=== PATIENT | male | born 1995 | race Caucasian/White ===

== ENCOUNTER 2016-09-29 17:15 | Emergency (ER) | payer OTHER ==
[2016-09-29 17:19] VITALS: BP 146/93
--- NOTE | 2016-09-29 17:21 | ER Document Report ---
ED Medical Screen (RME) - General Stated Complaint: BACK AND SIDE MUSCLE SPASMS Mode of Arrival: Ambulatory Information source: Patient Notes: c/o entire back pain and right side ribs and right anterior chest pain that started 2 days ago with associated muscle spasms. Hx of laryngitis 2 weeks ago with prolonged cough. +cough, +fever (Tmax 104 orally), +chills, -wheezing, -nausea, +post-tussive vomiting He has tried advil and icy hot which has not provided relief. He has completed an abx for laryngitis. I have greeted and performed a rapid initial assessment of this patient. A comprehensive ED assessment and evaluation of the patient, analysis of test results and completion of the medical decision making process will be conducted by additional ED providers. Physical Exam - Notes Notes: Lungs CTAB
[2016-09-29] MEDS ORDERED: HYDROCODONE/ACETAMINOPHEN 5-325 MG 6 TAB/DSPK PO PRN (19:11)
[2016-09-29] MEDS ORDERED: BENZONATATE 100 MG CAPSULE PO ONE (19:11)
--- NOTE | 2016-09-29 19:12 | ER Document Report ---
ED General - General Chief Complaint: Cold Symptoms Stated Complaint: BACK AND SIDE MUSCLE SPASMS Mode of Arrival: Ambulatory Notes: Patient is a 21-year-old male without past medical history who presents with 2 days of diffuse back, thoracic wall and shoulder pain. States that this started after several days of vigorous coughing to the point where he had posttussive emesis. Describes the pain as a dull, constant, aching pain. He states that he has been taking ibuprofen with minimal improvement of the pain. Nothing other than moving or coughing worsens the pain. States he had a fever several days ago but has not had any in the last 2-3 days. States the coughing is overall improving at this time. He denies any shortness of breath. No syncope. He has not seen his primary care doctor regarding today's concerns. He denies any history of similar symptoms in the past. TRAVEL OUTSIDE OF THE [place] IN LAST 30 DAYS: No - Related Data Allergies/Adverse Reactions: No Known Allergies Allergy (Unverified 09/29/16 17:20) Past Medical History - General Information source: Patient - Social History Smoking Status: Former Smoker Chew tobacco use (# tins/day): No Frequency of alcohol use: None Drug Abuse: None Lives with: Spouse/Significant other Family History: Reviewed & Not Pertinent Patient has suicidal ideation: No Patient has homicidal ideation: No Pulmonary Medical History: Reports: Hx Asthma - as a child Renal/ Medical History: Denies: Hx Peritoneal Dialysis Past Surgical History: Reports: Hx Tonsillectomy - Immunizations Hx Diphtheria, Pertussis, Tetanus Vaccination: Yes Review of Systems - Review of Systems Notes: Constitutional: Negative for fever. HENT: Negative for sore throat. Eyes: Negative for visual changes. Cardiovascular: Negative for chest pain. Respiratory: Negative for shortness of breath. Gastrointestinal: Negative for abdominal pain, vomiting or diarrhea. Genitourinary: Negative for dysuria. Musculoskeletal: Positive for diffuse chest wall and back musculoskeletal pain Skin: Negative for rash. Neurological: Negative for headaches, weakness or numbness. 10 point ROS negative except as marked above and in HPI. Physical Exam - Vital signs Vitals: Temp Pulse Resp BP Pulse Ox 97.8 F 106 H 18 146/93 H 96 09/29/16 17:18 09/29/16 17:18 09/29/16 17:18 09/29/16 17:18 09/29/16 17:18 Interpretation: Tachycardic Notes: PHYSICAL EXAMINATION: GENERAL: Well-appearing, well-nourished and in no acute distress. HEAD: Atraumatic, normocephalic. EYES: Pupils equal round and reactive to light, extraocular movements intact, sclera anicteric, conjunctiva are normal. ENT: nares patent, oropharynx clear without exudates. Moist mucous membranes. NECK: Normal range of motion, supple without lymphadenopathy LUNGS: Breath sounds clear to auscultation bilaterally and equal. No wheezes rales or rhonchi. HEART: Regular rate and rhythm without murmurs ABDOMEN: Soft, nontender, normoactive bowel sounds. No guarding, no rebound. No masses appreciated. EXTREMITIES: Normal range of motion, no pitting or edema. No cyanosis. NEUROLOGICAL: No focal neurological deficits. Moves all extremities spontaneously and on command. PSYCH: Normal mood, normal affect. SKIN: Warm, Dry, normal turgor, no rashes or lesions noted. Course - Re-evaluation Re-evalutation: 09/29/16 19:06 Patient presents with diffuse chest wall discomfort, bilateral perithoracic back pain, bilateral shoulder pain, low back soreness all which started after prolonged periods of coughing over the past several days. Patient has normal vitals and is overall very well appearance, laughing and joking with me during physical examination and history taking. He does not have any focal deformity on exam. Clear breath sounds bilaterally. I suspect that he has diffuse muscle soreness in the setting of persistent coughing. He will be treated with anti-inflammatories, antitussive agents, and a small amount of strong pain medicine so he can sleep at night. I do not suspect an acute pneumothorax, pulmonary embolus, myocardial infarction, pneumonia, or meningitis based on exam , history and vitals. At this time will discharge with return precautions and follow-up recommendations. Verbal discharge instructions given a the bedside and opportunity for questions given. Medication warnings reviewed. Patient is in agreement with this plan and has verbalized understanding of return precautions and the need for primary care follow-up in the next 24-72 hours. - Vital Signs Vital signs: Temp Pulse Resp BP Pulse Ox 97.8 F 106 H 20 146/93 H 96 09/29/16 17:18 09/29/16 17:18 09/29/16 18:17 09/29/16 17:18 09/29/16 17:18 Discharge - Discharge Clinical Impression: Chest wall pain, Persistent cough Condition: Good Disposition: HOME, SELF-CARE Additional Instructions: Your symptoms will likely take 1-2 weeks completely resolved. Be sure to take warm baths of standard a hot shower which will help to reduce the soreness in your muscles. Please take ibuprofen 600 mg every 6 hours for the next 1 week or until your symptoms resolve. Be sure to take with food or milk. You can take the Tessalon Perles that been prescribed for persistent coughing. You have also given a small amount of stronger pain medicine to assist with severe pain and I would ask that she only take this pain medicine at night so you can sleep. Return to the emergency department if you develop shortness of breath, began coughing blood, pass out, have worsening pain, or any other symptoms that are worrisome to you. Prescriptions: Benzonatate [Tessalon Perle 100 mg Capsule] 100 mg PO Q8HP PRN #40 cap PRN Reason:
== END 2016-09-29 19:40 | disposition home or self-care (01) ==
LOC: ER 17:15
DX: R05 Cough (principal); R07.89 Other chest pain; M54.6 Pain in thoracic spine; M54.5 Low back pain; M25.511 Pain in right shoulder; M25.512 Pain in left shoulder; R00.0 Tachycardia, unspecified; Z87.891 Personal history of nicotine dependence
CPT/HCPCS: 99283

== ENCOUNTER 2016-10-03 11:12 | Emergency (ER) | payer OTHER ==
[2016-10-03] MEDS ORDERED: IPRATROPIUM/ALBUTEROL 0.5-2.5 MG/3 ML AMPUL NEB ONE (11:37)
[2016-10-03] MEDS ORDERED: PREDNISONE 20 MG TABLET PO ONE (11:37)
--- NOTE | 2016-10-03 11:39 | ER Document Report ---
HPI - HPI Patient complains to provider of: cough, sore throat Onset: Other - One month Onset/Duration: Persistent Quality of pain: Achy Pain Level: 2 Context: Patient complains of productive cough for the past month with sore throat. Patient denies any fever. Patient states over the past 4-5 days he's noticed some blood in his sputum and has had night sweats. Patient does state that he traveled to [place] and on his return he did test positive for TB. Patient states that he was treated with a Z-Dante. Associated Symptoms: Productive cough, Sore throat, Other - Hemoptysis. denies : Fever Exacerbated by: Denies Relieved by: Denies Similar symptoms previously: No Recently seen / treated by doctor: Yes - ROS ROS below otherwise negative: Yes Systems Reviewed and Negative: Yes All other systems reviewed and negative - CONSTITUTIONAL Constitutional: REPORTS: Fever - 1 week ago, none since then - EENT EENT: REPORTS: Sore Throat - CARDIOVASCULAR Cardiovascular: DENIES: Chest pain - RESPIRATORY Respiratory: REPORTS: Coughing - GASTROINTESTINAL Gastrointestinal: DENIES: Nausea, Diarrhea - MUSCULOSKELETAL Musculoskeletal: DENIES: Extremity pain, Back Pain, Neck Pain - DERM Skin Color: Normal Skin Problems: None Past Medical History - General Information source: Patient - Social History Smoking Status: Never Smoker Frequency of alcohol use: None Drug Abuse: None Occupation: full-time student Lives with: Family Family History: Reviewed & Not Pertinent Pulmonary Medical History: Reports: Hx Asthma - as a child Renal/ Medical History: Denies: Hx Peritoneal Dialysis Past Surgical History: Reports: Hx Tonsillectomy - Immunizations Hx Diphtheria, Pertussis, Tetanus Vaccination: Yes Vertical Provider Document - CONSTITUTIONAL Agree With Documented VS: Yes Exam Limitations: No Limitations General Appearance: WD/WN, No Apparent Distress - INFECTION CONTROL TRAVEL OUTSIDE OF THE [place] IN LAST 30 DAYS: No - HEENT HEENT: Atraumatic, Normocephalic, Pharyngeal Erythema. negative: Pharyngeal Exudate, Pharyngeal Tenderness - NECK Neck: Normal Inspection, Supple. negative: Lymphadenopathy-Left, Lymphadenopathy-Right - RESPIRATORY Respiratory: No Respiratory Distress, Wheezing - Bilateral O2 Sat by Pulse Oximetry: 96 - CARDIOVASCULAR Cardiovascular: Regular Rate, Regular Rhythm, No Murmur - BACK Back: Normal Inspection - MUSCULOSKELETAL/EXTREMETIES Musculoskeletal/Extremeties: LINDA CAPUTO - NEURO Level of Consciousness: Awake, Alert, Appropriate Motor/Sensory: No Motor Deficit - DERM Integumentary: Warm, Dry, No Rash Course - Re-evaluation Re-evalutation: 10/03/16 12:42 After review of radiology report, further history is was obtained from patient. Patient states that he had previously tested negative for TB up until a trip to [facility] in 2013 with . Patient states after his deployment to [facility] he returned had a positive TB test and states that he was treated with a short course of antibiotics that he states was a Z-Dante. Patient reports that he has had hemoptysis as well as night sweats for the past 5 days but denies any weight loss. Patient states he had a fever 1 week ago but none since then. Consulted with Dr. Noel regarding patient presentation, recommends consultation with hospitalist for likely admission Consulted with Dr. Roberts who does agree to accept patient as admission to [facility]. Dr. Welch recommends basic laboratory tests including CBC, blood culture, sputum culture and CMP, does not recommend AFB at this time. 10/03/16 12:45 electronics maintenance technician advised of patient's status, patient will be moved into a negative air pressure room when room comes available. Dr. Welch gave a list of medications that patient should be discharged home on along with doses as well: Isoniazid 300 mg daily, rifampin 300 mg by mouth twice a day, pyrazanmide 2000 mg daily, ethambutol 1600 mg daily, along with vit b6 as long as HIV test is negative. 10/03/16 12:53 Spoke with [facility] regarding patient status and location in the emergency department. Patient will be temporarily in room 32 until that 5 comes available. 10/03/16 13:11 Kalli Pineda will be by to evaluate patient, patient may possibly be discharged pending set up of outpatient follow-up per Dr Noel after consultation with Dr. Roberts. 10/03/16 13:50 Kalli Pineda to consult with health Department as far as arranging outpatient follow-up. Kalli advised writing one month prescription for medications that can be picked up at the health department free of charge. States that any medications not treating TB will not be free charge and that patient should get those filled at a pharmacy. 10/03/16 15:11 Spoke with [facility] who agrees that patient can be discharged and that she will write a consultation note. - Vital Signs Vital signs: Temp Pulse Resp BP Pulse Ox 98.4 F 96 20 128/84 H 96 10/03/16 11:26 10/03/16 11:26 10/03/16 11:26 10/03/16 11:26 10/03/16 11:26 - Laboratory Result Diagrams: 10/03/16 13:00 10/03/16 13:00 Laboratory results interpreted by me: 10/03/16 15:19 Labs- Last Values WBC 17.8 10^3/uL (4.0-10.5) H 10/03/16 13:00 RBC 5.40 10^6/uL (4.35-5.55) 10/03/16 13:00 Hgb 16.3 g/dL (13.5-17.0) 10/03/16 13:00 Hct 46.7 % (37.9-51.0) 10/03/16 13:00 MCV 86 fl (80-97) 10/03/16 13:00 MCH 30.1 pg (27.0-33.4) 10/03/16 13:00 MCHC 34.9 g/dL (32.0-36.0) 10/03/16 13:00 RDW 12.6 % (11.5-14.0) 10/03/16 13:00 Plt Count 323 10^3/uL (150-450) 10/03/16 13:00 Seg Neutrophils % 63.7 % (42-78) 10/03/16 13:00 Lymphocytes % 15.7 % (13-45) 10/03/16 13:00 Monocytes % 6.9 % (3-13) 10/03/16 13:00 Eosinophils % 13.3 % (0-6) H 10/03/16 13:00 Basophils % 0.4 % (0-2) 10/03/16 13:00 Absolute Neutrophils 11.4 10^3/uL (1.7-8.2) H 10/03/16 13:00 Absolute Lymphocytes 2.8 10^3/uL (0.5-4.7) 10/03/16 13:00 Absolute Monocytes 1.2 10^3/uL (0.1-1.4) 10/03/16 13:00 Absolute Eosinophils 2.4 10^3/uL (0.0-0.6) H 10/03/16 13:00 Absolute Basophils 0.1 10^3/uL (0.0-0.2) 10/03/16 13:00 Sodium 141.4 mmol/L (137-145) 10/03/16 13:00 Potassium 4.7 mmol/L (3.6-5.0) 10/03/16 13:00 Chloride 99 mmol/L (98-107) 10/03/16 13:00 Carbon Dioxide 28 mmol/L (22-30) 10/03/16 13:00 Anion Gap 14 (5-19) 10/03/16 13:00 BUN 12 mg/dL (7-20) 10/03/16 13:00 Creatinine 0.86 mg/dL (0.52-1.25) 10/03/16 13:00 Est GFR ( Amer) > 60 (>60) 10/03/16 13:00 Est GFR (Non-Af Amer) > 60 (>60) 10/03/16 13:00 Glucose 108 mg/dL (75-110) 10/03/16 13:00 Calcium 9.6 mg/dL (8.4-10.2) 10/03/16 13:00 Total Bilirubin 0.7 mg/dL (0.2-1.3) 10/03/16 13:00 Direct Bilirubin 0.0 mg/dL (0.0-0.3) 10/03/16 13:00 AST 27 U/L (17-59) 10/03/16 13:00 ALT 43 U/L (21-72) 10/03/16 13:00 Alkaline Phosphatase 119 U/L (38-126) 10/03/16 13:00 Total Protein 7.4 g/dL (6.3-8.2) 10/03/16 13:00 Albumin 3.9 g/dL (3.5-5.0) 10/03/16 13:00 Urine Color YELLOW 10/03/16 13:35 Urine Appearance CLEAR 10/03/16 13:35 Urine pH 5.0 (5.0-9.0) 10/03/16 13:35 Ur Specific [place] 1.030 10/03/16 13:35 Urine Protein NEGATIVE mg/dL (NEGATIVE) 10/03/16 13:35 Urine Glucose (UA) NEGATIVE mg/dL (NEGATIVE) 10/03/16 13:35 Urine Ketones NEGATIVE mg/dL (NEGATIVE) 10/03/16 13:35 Urine Blood NEGATIVE (NEGATIVE) 10/03/16 13:35 Urine Nitrite NEGATIVE (NEGATIVE) 10/03/16 13:35 Urine Bilirubin SMALL (NEGATIVE) H 10/03/16 13:35 Urine Urobilinogen 2.0 mg/dL (<2.0) H 10/03/16 13:35 Ur Leukocyte Esterase NEGATIVE (NEGATIVE) 10/03/16 13:35 Urine WBC (Auto) 0 /HPF 10/03/16 13:35 Urine RBC (Auto) 1 /HPF 10/03/16 13:35 Squamous Epi Cells Auto <1 /HPF 10/03/16 13:35 Urine Mucus (Auto) FEW /LPF 10/03/16 13:35 Urine Ascorbic Acid NEGATIVE (NEGATIVE) 10/03/16 13:35 HIV 1&2 Antibody NEGATIVE (NEGATIVE) 10/03/16 13:00 10/03/16 22:44 - Diagnostic Test Radiology reviewed: Reports reviewed Discharge - Discharge Clinical Impression: Persistent cough, History of TB (tuberculosis), Tuberculosis, Cavitary lesion of lung Condition: Stable Disposition: HOME, SELF-CARE Instructions: Tuberculosis ([facility]), Inhaled Bronchodilators ([facility]), Steroid Medication Additional Instructions: Return immediately for any new or worsening symptoms Follow-up with the health department tomorrow for a recheck. Take your prescriptions there with you, they will fill the tuberculosis medications therefore you at the health department. Followup with your primary care provider, call tomorrow to make a followup appointment Prescriptions: Albuterol Sulfate [Ventolin Hfa] 2 puff IH Q4HP PRN #17 gm PRN Reason: Ethambutol HCl [Myambutol 400 mg Tablet] 1,600 mg PO DAILY #120 tablet Isoniazid [Isoniazid 300 Mg Tablet] 300 mg PO DAILY #30 tablet Prednisone [Deltasone 10 mg Tablet] 10 mg PO ASDIR PRN #21 tablet PRN Reason: Pyrazinamide [Pyrazinamide 500 Mg Tablet] 2,000 mg PO DAILY #120 tablet Pyridoxine HCl 50 mg PO DAILY #30 tablet Rifampin [Rifadin] 300 mg PO BID #60 capsule [facility]NO [facility] - Follow up tomorrow
[2016-10-03] MEDS ORDERED: ALBUTEROL SULFATE 0.083% NEB 2.5 MG/3 ML AMPUL NEB SCH (11:52)
[2016-10-03] MEDS ORDERED: LEVOFLOXACIN RTU 750 MG/D5W 150 ML IV ONE (12:46)
[2016-10-03 13:15] LABS: ABSOLUTE BASOPHILS # (AUTO) 0.1 10^3/uL (0.0-0.2); ABSOLUTE EOSINOPHILS # (AUTO) 2.4 10^3/uL (0.0-0.6); ABSOLUTE LYMPHOCYTES (AUTO) 2.8 10^3/uL (0.5-4.7); ABSOLUTE MONOCYTES (AUTO) 1.2 10^3/uL (0.1-1.4); ABSOLUTE NEUT (AUTO) 11.4 10^3/uL (1.7-8.2); BASOPHILS % (AUTO) 0.4 % (0-2); EOSINOPHILS % (AUTO) 13.3 % (0-6); HEMATOCRIT 46.7 % (37.9-51.0); HEMOGLOBIN 16.3 g/dL (13.5-17.0); HGB HCT DIFFERENCE 2.2; LYMPHOCYTES % (AUTO) 15.7 % (13-45); MEAN CORPUSCULAR HEMOGLOBIN 30.1 pg (27.0-33.4); MEAN CORPUSCULAR HGB CONC 34.9 g/dL (32.0-36.0); MEAN CORPUSCULAR VOLUME 86 fl (80-97); MONOCYTES % (AUTO) 6.9 % (3-13); RED CELL DISTRIBUTION WIDTH 12.6 % (11.5-14.0); SEGMENTED NEUTROPHILS % (AUTO) 63.7 % (42-78); WHITE BLOOD COUNT 17.8 10^3/uL (4.0-10.5)
[2016-10-03 13:46] LABS: ALANINE AMINOTRANSFERASE 43 U/L (21-72); ALBUMIN 3.9 g/dL (3.5-5.0); ALKALINE PHOSPHATASE 119 U/L (38-126); ANION GAP 14 (5-19); ASPARTATE AMINO TRANSFERASE 27 U/L (17-59); BILIRUBIN,TOTAL 0.7 mg/dL (0.2-1.3); BLOOD UREA NITROGEN 12 mg/dL (7-20); CALCIUM 9.6 mg/dL (8.4-10.2); CARBON DIOXIDE 28 mmol/L (22-30); CHLORIDE 99 mmol/L (98-107); CREATININE RESULT 0.86 mg/dL (0.52-1.25); GLUCOSE 108 mg/dL (75-110); POTASSIUM 4.7 mmol/L (3.6-5.0); SODIUM 141.4 mmol/L (137-145); TOTAL PROTEIN 7.4 g/dL (6.3-8.2)
[2016-10-03 14:01] LABS: APPEARANCE,URINE CLEAR; BILIRUBIN,URINE SMALL (NEGATIVE); GLUCOSE, URINE NEGATIVE (NEGATIVE); KETONES,URINE NEGATIVE (NEGATIVE); LEUKOCYTE ESTERASE,URINE NEGATIVE (NEGATIVE); NITRITE,URINE NEGATIVE (NEGATIVE); PROTEIN,URINE NEGATIVE (NEGATIVE)
[2016-10-03 14:26] LABS: ADD HIVPANEL? NO; HIV (1 AND 2) ANTIBODY NEGATIVE (NEGATIVE)
--- NOTE | 2016-10-03 15:16 | PDOC CONSULTATION ---
Consultation Consult Date: 10/03/16 Attending physician:: PAVITHRA BOONE Consult reason:: Right upper lobe cavitating lung mass in patient with positive TB test one year ago History of Present Illness Admission Date/PCP: T Patient complains of: Hemoptysis, cough and 5 days of night sweats History of Present Illness: MIKE LICONA is a 21 year old male with no past medical history [facility] complaining of hemoptysis, cough and night sweats for the last 5 days. He states he thinks he had a fever the first day, none since that time. He does have a history of a positive TB test 1 year ago after deployment [place] with the . He states up until that time he had been negative on all his TB testing done in the past. He states he was given what he believes was a Z-Dante or it could've been some other medication for less than a week. He had no further follow-ups are chest x-rays since that time. He lives with his and 7-month-old son, neither of them are ill. At the present time he is stable, blood pressure is good, he is afebrile has good oxygen saturations on room air. He denies any weight loss, nausea or vomiting. Past Medical History Medical History: None Pulmonary Medical History: Reports: Asthma - as a child EENT Medical History: Reports: None Neurological Medical History: Reports: None Endocrine Medical History: Reports: None Renal/ Medical History: Reports: None Malignancy Medical History: Reports: None GI Medical History: Reports: None Musculoskeltal Medical History: Reports: None Skin Medical History: Reports: None Psychiatric Medical History: Reports: None Traumatic Medical History: Reports: None Hematology: Reports: None Infectious Medical History: Reports: None Past Surgical History Past Surgical History: Reports: Tonsillectomy Social History Information Source: Patient Lives with: Family Smoking Status: Never Smoker Frequency of Alcohol Use: Occasional Hx Recreational Drug Use: No Hx Prescription Drug Abuse: No - Advance Directive Resuscitation Status: Full Code Surrogate healthcare decision maker:: would be his surrogate decision maker should he become incapacitated Family History Family History: Reviewed & Not Pertinent Parental Family History Reviewed: Yes Children Family History Reviewed: Yes Sibling(s) Family History Reviewed.: Yes Medication/Allergy Home Medications: No Home Medications 10/03/16 Allergies/Adverse Reactions: No Known Allergies Allergy (Unverified 09/29/16 17:20) Review of Systems Constitutional: PRESENT: fatigue, fever(s), night sweats Eyes: ABSENT: visual disturbances Ears: ABSENT: hearing changes Cardiovascular: ABSENT: chest pain, dyspnea on exertion, edema, orthropnea, palpitations Respiratory: PRESENT: cough, hemoptysis, sputum Gastrointestinal: ABSENT: abdominal pain, constipation, diarrhea, hematemesis, hematochezia, nausea, vomiting Genitourinary: ABSENT: dysuria, hematuria Musculoskeletal: ABSENT: joint swelling Integumentary: ABSENT: rash, wounds Neurological: ABSENT: abnormal gait, abnormal speech, confusion, dizziness, focal weakness, syncope Psychiatric: ABSENT: anxiety, depression, homidical ideation, suicidal ideation Endocrine: ABSENT: cold intolerance, heat intolerance, polydipsia, polyuria Hematologic/Lymphatic: ABSENT: easy bleeding, easy bruising Physical Exam Vital Signs: Temp Pulse Resp BP Pulse Ox 98.4 F 96 20 128/84 H 96 10/03/16 11:26 10/03/16 11:26 10/03/16 11:26 10/03/16 11:26 10/03/16 13:50 Intake & Output 10/02/16 10/03/16 10/04/16 06:59 06:59 06:59 Weight 85.4 kg General appearance: PRESENT: no acute distress, well-developed, well-nourished Head exam: PRESENT: atraumatic, normocephalic Eye exam: PRESENT: conjunctiva pink, EOMI, PERRLA. ABSENT: scleral icterus Ear exam: PRESENT: normal external ear exam Mouth exam: PRESENT: moist, tongue midline Neck exam: ABSENT: carotid bruit, JVD, lymphadenopathy, thyromegaly Respiratory exam: PRESENT: rhonchi, symmetrical, unlabored Cardiovascular exam: PRESENT: RRR. ABSENT: diastolic murmur, rubs, systolic murmur Pulses: PRESENT: normal dorsalis pedis pul Vascular exam: PRESENT: normal capillary refill GI/Abdominal exam: PRESENT: normal bowel sounds, soft. ABSENT: distended, guarding, mass, organolmegaly, rebound, tenderness Rectal exam: PRESENT: deferred Extremities exam: PRESENT: full ROM. ABSENT: calf tenderness, clubbing, pedal edema Neurological exam: PRESENT: alert, awake, oriented to person, oriented to place , oriented to time, oriented to situation, CN II-XII grossly intact. ABSENT: motor sensory deficit Psychiatric exam: PRESENT: appropriate affect, normal mood. ABSENT: homicidal ideation, suicidal ideation Skin exam: PRESENT: dry, intact, warm. ABSENT: cyanosis, rash Results Laboratory Results: 10/03/16 13:00 10/03/16 13:00 10/03/16 10/03/16 10/03/16 13:00 13:00 13:35 WBC 17.8 H RBC 5.40 Hgb 16.3 Hct 46.7 MCV 86 MCH 30.1 MCHC 34.9 RDW 12.6 Plt Count 323 Seg Neutrophils % 63.7 Lymphocytes % 15.7 Monocytes % 6.9 Eosinophils % 13.3 H Basophils % 0.4 Absolute Neutrophils 11.4 H Absolute Lymphocytes 2.8 Absolute Monocytes 1.2 Absolute Eosinophils 2.4 H Absolute Basophils 0.1 Sodium 141.4 Potassium 4.7 Chloride 99 Carbon Dioxide 28 Anion Gap 14 BUN 12 Creatinine 0.86 Est GFR ( Amer) > 60 Est GFR (Non-Af Amer) > 60 Glucose 108 Calcium 9.6 Total Bilirubin 0.7 AST 27 ALT 43 Alkaline Phosphatase 119 Total Protein 7.4 Albumin 3.9 Urine Color YELLOW Urine Appearance CLEAR Urine pH 5.0 Ur Specific [place] 1.030 Urine Protein NEGATIVE Urine Glucose (UA) NEGATIVE Urine Ketones NEGATIVE Urine Blood NEGATIVE Urine Nitrite NEGATIVE Ur Leukocyte Esterase NEGATIVE Urine WBC (Auto) 0 Urine RBC (Auto) 1 10/03/16 13:35 Sputum Microbiology Comment - Final Not Reportable Impressions: Chest X-Ray 10/03/16 11:37 IMPRESSION: Large confluent density right apex. Possibly consolidated infectious process. Recommend continued followup and CT of the chest if patient does not respond to appropriate therapy. Assessment & Plan - Diagnosis (1) Pneumonia Qualifiers: Pneumonia type: due to unspecified organism Laterality: right Lung location: upper lobe of lung Qualified Code(s): J18.1 - Lobar pneumonia, unspecified organism - Time Time Spent: 50 to 70 Minutes Critical Time spent with patient: 15-24 minutes Medications reviewed and adjusted accordingly: Yes Anticipated discharge: Home Within: within 24 hours
[2016-10-03 15:51] VITALS: BP 113/98
== END 2016-10-03 15:52 | disposition home or self-care (01) ==
LOC: ER 11:12
DX: R05 Cough (principal); A15.0 Tuberculosis of lung; J02.9 Acute pharyngitis, unspecified; R50.9 Fever, unspecified
CPT/HCPCS: 94640 ×2; 99284; 36415; 87040; 87070; 87205; 87206; 87116; 85025; 80053; 81001; 86701; 87015; 71020; 71260; J7512; J7620

== ENCOUNTER 2017-07-07 07:17 | Emergency (ER) | payer OTHER ==
[2017-07-07] MEDS ORDERED: ALBUTEROL SULFATE 0.083% NEB 2.5 MG/3 ML AMPUL NEB ONE (07:36)
[2017-07-07] MEDS ORDERED: GUAIFENESIN/D-METHORPHAN (200-20 MG) SYRUP 10 ML PO ONE (07:36)
--- NOTE | 2017-07-07 08:26 | RADIOLOGY REPORT (SQ) ---
EXAM DESCRIPTION: CHEST PA/LAT COMPLETED DATE/TIME: 07/07/2017 8:06 am REASON FOR STUDY: hx large pneumonia/new cough/sob COMPARISON: September 2016 EXAM PARAMETERS: NUMBER OF VIEWS: two views TECHNIQUE: Digital Frontal and Lateral radiographic views of the chest acquired. RADIATION DOSE: NA LIMITATIONS: none FINDINGS: LUNGS AND PLEURA: No opacities, masses or pneumothorax. No pleural effusion. MEDIASTINUM AND HILAR STRUCTURES: No masses or contour abnormalities. HEART AND VASCULAR STRUCTURES: Heart normal size. No evidence for failure. BONES: No acute findings. HARDWARE: None in the chest. OTHER: No other significant finding. IMPRESSION: NO SIGNIFICANT RADIOGRAPHIC FINDING IN THE CHEST. TECHNICAL DOCUMENTATION: JOB ID: [id number] [employer]- All Rights Reserved
--- NOTE | 2017-07-07 08:46 | ER Document Report ---
ED Respiratory Problem - General Chief Complaint: Cough Stated Complaint: COUGH Time Seen by Provider: 07/07/17 07:35 Mode of Arrival: Ambulatory Information source: Patient Notes: Patient patient is a 22-year-old male, ex-, who presents to the ER today for 3 days of productive cough, night sweats, chills. Patient states that he has had some streaks of blood in his sputum with coughing. Patient was evaluated in September of this year after coming back from [place] for tuberculosis after finding a cavitary lesion in the right apex of the lung. Patient does not know if he was treated for tuberculosis or not as he was sent home with 2 months of antibiotics through PICC line. He was evaluated by infectious disease at [facility]. He states that he has been better but then 3 days ago started coughing again. He states "this feels exactly the same as before." TRAVEL OUTSIDE OF THE [place] IN LAST 30 DAYS: No - Related Data Allergies/Adverse Reactions: No Known Allergies Allergy (Verified 07/07/17 07:24) Past Medical History - General Information source: Patient - Social History Smoking Status: Former Smoker Chew tobacco use (# tins/day): No Frequency of alcohol use: None Drug Abuse: None Family History: Reviewed & Not Pertinent Patient has suicidal ideation: No Patient has homicidal ideation: No Pulmonary Medical History: Reports: Hx Asthma - as a child, Hx Pneumonia Renal/ Medical History: Denies: Hx Peritoneal Dialysis Past Surgical History: Reports: Hx Tonsillectomy - Immunizations Hx Diphtheria, Pertussis, Tetanus Vaccination: Yes Review of Systems - Review of Systems Constitutional: See HPI EENT: No symptoms reported Cardiovascular: No symptoms reported Respiratory: See HPI Gastrointestinal: No symptoms reported Genitourinary: No symptoms reported Male Genitourinary: No symptoms reported Musculoskeletal: No symptoms reported Skin: No symptoms reported Hematologic/Lymphatic: No symptoms reported Neurological/Psychological: No symptoms reported Physical Exam - Vital signs Vitals: Temp Pulse Resp BP Pulse Ox 98.4 F 86 16 142/65 H 96 07/07/17 07:34 07/07/17 07:34 07/07/17 07:34 07/07/17 07:34 07/07/17 07:34 - Notes Notes: PHYSICAL EXAMINATION: GENERAL: Mildly ill-appearing, but in no acute distress. HEAD: Atraumatic, normocephalic. EYES: Pupils equal round and reactive to light, extraocular movements intact, sclera anicteric, conjunctiva are normal. ENT: ear canals without erythema or foreign body, TMs pearly logan with good bony landmarks, nares patent, oropharynx clear without exudates. Moist mucous membranes. NECK: Normal range of motion, supple without lymphadenopathy LUNGS: Cough, mild expiratory wheezes, no rales or rhonchi. HEART: Regular rate and rhythm without murmurs ABDOMEN: Soft, no tenderness. No guarding, no rebound BACK: no vertebral tenderness, normal ROM GI/: no CVA tenderness EXTREMITIES: Normal range of motion, no pitting edema. No cyanosis. NEUROLOGICAL: Cranial nerves grossly intact. Normal sensory/motor exams. PSYCH: Normal mood, normal affect. SKIN: Warm, Dry, normal turgor, no rashes or lesions noted Course - Re-evaluation Re-evalutation: 07/07/17 08:29 Patient is afebrile with normal vital signs, appears mildly ill with productive cough. Sputum cultures have been sent for AFB as well as a regular sputum culture and Gram stain. I spoke with Dr. Arizmendi, infectious disease from [facility], who states that he did NOT have tuberculosis, she states that they performed a bronchoscopy which is the definitive test for tuberculosis and it was negative. She also states "everything we did was negative except that he had an abscess. They did treat patient for a bacterial lung abscess with 6 weeks of ertapenam Through a PICC line. Patient has not traveled again so I will not reevaluate him for tuberculosis today. Chest x-ray was negative, infectious disease and my attending advised CAT scan with contrast to evaluate recurrence of the abscess. 07/07/17 09:06 - Vital Signs Vital signs: Temp Pulse Resp BP Pulse Ox 98.0 F 87 17 121/86 H 96 07/07/17 10:54 07/07/17 10:54 07/07/17 10:54 07/07/17 10:54 07/07/17 10:54 - Laboratory Result Diagrams: 07/07/17 08:57 07/07/17 08:57 Discharge - Discharge Clinical Impression: Recurrent pneumonia Condition: Stable Disposition: HOME, SELF-CARE Additional Instructions: Return immediately for any new or worsening symptoms. Follow up with primary care provider, call tomorrow to make followup appointment. Take Augmentin for 2 weeks, then bactrim for 3 months!! Prescriptions: Hydrocodone Bit/Homatropine [Hycodan Syrup 5-1.5 mg/5 ml Ud Cup] 5 ml PO Q4HP PRN #120 ml PRN Reason: Benzonatate [Tessalon Perle 100 mg Capsule] 100 mg PO Q8HP PRN #40 cap PRN Reason: Amox Tr/Potassium Clavulanate [Augmentin 875-125 Tablet] 1 tab PO BID 14 Days # 28 tablet Methylprednisolone [Medrol Dosepack (4 mg/Tab) 21 Tab/Dosepak] 4 mg PO ASDIR PRN #21 tab.ds.pk PRN Reason: Sulfamethoxazole/Trimethoprim [Bactrim Ds Tablet] 1 each PO BID #180 tablet Forms: Return to Work Referrals: IRAIDA MATT MD [ACTIVE STAFF] - Follow up as needed
[2017-07-07 09:17] LABS: ABSOLUTE EOSINOPHILS # (AUTO) 0.5 10^3/uL (0.0-0.6); ABSOLUTE LYMPHOCYTES (AUTO) 2.7 10^3/uL (0.5-4.7); ABSOLUTE MONOCYTES (AUTO) 0.7 10^3/uL (0.1-1.4); ABSOLUTE NEUT (AUTO) 4.1 10^3/uL (1.7-8.2); BASOPHILS % (AUTO) 0.4 % (0-2); EOSINOPHILS % (AUTO) 5.9 % (0-6); HEMATOCRIT 47.3 % (37.9-51.0); HEMOGLOBIN 16.6 g/dL (13.5-17.0); HGB HCT DIFFERENCE 2.5; LYMPHOCYTES % (AUTO) 34.2 % (13-45); MEAN CORPUSCULAR HEMOGLOBIN 30.5 pg (27.0-33.4); MEAN CORPUSCULAR HGB CONC 35.1 g/dL (32.0-36.0); MEAN CORPUSCULAR VOLUME 87 fl (80-97); MONOCYTES % (AUTO) 8.2 % (3-13); RED BLOOD COUNT 5.45 10^6/uL (4.35-5.55); RED CELL DISTRIBUTION WIDTH 13.3 % (11.5-14.0); SEGMENTED NEUTROPHILS % (AUTO) 51.3 % (42-78)
[2017-07-07 09:37] LABS: ALANINE AMINOTRANSFERASE 36 U/L (21-72); ALBUMIN 4.2 g/dL (3.5-5.0); ALKALINE PHOSPHATASE 95 U/L (38-126); ANION GAP 12 (5-19); ASPARTATE AMINO TRANSFERASE 22 U/L (17-59); BILIRUBIN,DIRECT 0.4 mg/dL (0.0-0.4); BILIRUBIN,TOTAL 0.6 mg/dL (0.2-1.3); BLOOD UREA NITROGEN 11 mg/dL (7-20); CALCIUM 9.4 mg/dL (8.4-10.2); CARBON DIOXIDE 28 mmol/L (22-30); CHLORIDE 103 mmol/L (98-107); CREATININE RESULT 0.84 mg/dL (0.52-1.25); GLUCOSE 96 mg/dL (75-110); POTASSIUM 3.9 mmol/L (3.6-5.0); SODIUM 143.4 mmol/L (137-145); TOTAL PROTEIN 6.8 g/dL (6.3-8.2)
--- NOTE | 2017-07-07 10:26 | RADIOLOGY REPORT (SQ) ---
EXAM DESCRIPTION: CT CHEST WITH COMPLETED DATE/TIME: 07/07/2017 10:09 am REASON FOR STUDY: possible recurring abscess lung, right apex? COMPARISON: 10/03/2016 chest radiograph 07/07/2017 TECHNIQUE: CT scan of the chest performed using helical scanning technique with dynamic intravenous contrast injection. Images reviewed with lung, soft tissue and bone windows. Reconstructed coronal and sagittal MPR images reviewed. All images stored on PACS. All CT scanners at this facility use dose modulation, iterative reconstruction, and/or weight based d osing when appropriate to reduce radiation dose to as low as reasonably achievable (ALARA). [facility]: Dose Right [facility]: CareDose [facility]: Dose Right [facility]: Teradose 4D [facility]: [employer] CONTRAST TYPE AND DOSE: 80 cc Isovue 370- low osmolar. RENAL FUNCTION: Creatinine 0.84 BUN 11 RADIATION DOSE: . LIMITATIONS: None. FINDINGS: LUNGS AND PLEURA: There is a fairly well-defined 12 mm opacity in the right lung on image 52 series 4. This is in the right middle lobe. This is seen best on the lung windows. There are no pleural effusions. No infiltrates are seen. HILAR AND MEDIASTINAL STRUCTURES: No identified masses or abnormal nodes. HEART AND VASCULAR STRUCTURES: No aneurysm or dissection. No central pulmonary emboli. No pericardi al effusion. HARDWARE: None in the chest. UPPER ABDOMEN: No significant findings. Limited exam. THYROID AND OTHER SOFT TISSUES: No masses. No adenopathy. BONES: No significant finding. OTHER: No other significant finding. IMPRESSION: There is a focal opacity right middle lobe. This seems more likely to represent an infl ammatory lesion. This is not present on the study of October 03. Follow-up as clinically indicated. TECHNICAL DOCUMENTATION: JOB ID: [id number] Quality ID # [id number]: Final reports with documentation of one or more dose reduction techniques (e.g., Au tomated exposure control, adjustment of the mA and/or kV according to patient size, use of iterative reconstruction technique) 2010 [employer]- All Rights Reserved
[2017-07-07] MEDS ORDERED: ALBUTEROL SULFATE HFA (90 MCG/PUFF) 8 GM MDI (1 MDI/ER DISP) IH PRN (10:35)
[2017-07-07 10:59] VITALS: BP 121/86
== END 2017-07-07 10:59 | disposition home or self-care (01) ==
LOC: ER 07:17
DX: J18.8 Other pneumonia, unspecified organism (principal); Z87.891 Personal history of nicotine dependence
CPT/HCPCS: 94640; 99284; 36415; 87070; 87205; 87206; 87116; 85025; 87077; 80053; 87186; 87015; 71020; 71260; J3490 ×2